=== PATIENT | male | born 1945 | race Caucasian/White ===

== ENCOUNTER 2016-11-07 14:27 | Emergency (ER) | payer OTHER ==
[2016-11-07 14:50] VITALS: TEMP 96
[2016-11-07 15:10] LABS: BASOPHILS % (AUTO) 1 % (0-3); EOSINOPHILS % (AUTO) 1 % (0-9); HEMATOCRIT 41 % (39-53); MEAN CORPUSCULAR HGB CONC 31.8 gm/dl (32.0-36.0); MEAN CORPUSCULAR VOLUME 91 fL (80-100); MONOCYTES % (AUTO) 6.8 % (0-12); NEUTROPHILS % (AUTO) 57.3 % (37-80)
[2016-11-07 15:27] LABS: ALBUMIN 3.6 gm/dl (3.4-5.0); ALT 12 IU/L (14-63); CALCIUM 8.7 mg/dl (8.5-10.1); GLOM FILT RATE 49 mL/min (>60); SODIUM 139 mMol/L (136-145)
[2016-11-07 15:31] LABS: POTASSIUM 4.4 mMol/L (3.5-5.1)
[2016-11-07 15:31] LABS: APPEARANCE,URINE Clear; BILIRUBIN,URINE NEGATIVE (NEGATIVE); COLOR,URINE Yellow; GLUCOSE, URINE (UA) NEGATIVE (NEGATIVE); KETONES,URINE TRACE (NEGATIVE); LEUKOCYTE ESTERASE ,URINE NEGATIVE (NEGATIVE); NITRATE,URINE NEGATIVE (NEGATIVE); OCCULT BLOOD,URINE 2+ (NEG-TRACE); PH,URINE 6.5
[2016-11-07 15:44] LABS: RBC,URINE 75-100 (0-3AV/HPF); WBC,URINE 0-2 (0-5AV/HPF)
[2016-11-07] MEDS ORDERED: SODIUM CHLORIDE 0.9% FLUSH 10 ML SOL IV PRN (16:36)
[2016-11-07] MEDS ORDERED: SODIUM CHLORIDE 0.9% 1000ML 1,000 ML IV ONE ×2 (16:36→16:38)
[2016-11-07 18:13] VITALS: BP 165/99; PULSE 67; RESP 19; O2SAT 97
== END 2016-11-07 19:05 | DRG 948 ==
LOC: ED 14:27
DX: R41.0 Disorientation, unspecified (principal); R31.29 Other microscopic hematuria; R32 Unspecified urinary incontinence
CPT/HCPCS: 36415; 80053; 81001; 84484; 85025; 93005; 96365; 99284; 99285

== ENCOUNTER 2016-11-09 17:23 | Emergency (ER) | payer OTHER ==
[2016-11-09 17:48] VITALS: TEMP 97.8
[2016-11-09 17:54] LABS: BASOPHILS % (AUTO) 0 % (0-3); EOSINOPHILS % (AUTO) 1 % (0-9); HEMATOCRIT 41 % (39-53); MEAN CORPUSCULAR HGB CONC 32.3 gm/dl (32.0-36.0); MEAN CORPUSCULAR VOLUME 89 fL (80-100); NEUTROPHILS % (AUTO) 71.3 % (37-80)
[2016-11-09 18:08] LABS: ALBUMIN 3.6 gm/dl (3.4-5.0); ALT 13 IU/L (14-63); GLOM FILT RATE 50 mL/min (>60); POTASSIUM 4.4 mMol/L (3.5-5.1); SODIUM 141 mMol/L (136-145)
[2016-11-09 18:33] LABS: APPEARANCE,URINE Clear; BILIRUBIN,URINE NEGATIVE (NEGATIVE); COLOR,URINE Yellow; GLUCOSE, URINE (UA) NEGATIVE (NEGATIVE); KETONES,URINE TRACE (NEGATIVE); LEUKOCYTE ESTERASE ,URINE NEGATIVE (NEGATIVE); NITRATE,URINE NEGATIVE (NEGATIVE); OCCULT BLOOD,URINE NEGATIVE (NEG-TRACE); UROBILINOGEN,URINE 0.2 (0.2-1.0 EU)
[2016-11-09 18:48] LABS: RBC,URINE 0-1 (0-3AV/HPF)
[2016-11-09 18:49] LABS: WBC,URINE 0-1 (0-5AV/HPF)
[2016-11-09 19:56] VITALS: BP 127/82; PULSE 79; RESP 12; O2SAT 91
== END 2016-11-09 20:04 | DRG 948 ==
LOC: ED 17:23
DX: R53.1 Weakness (principal); M79.604 Pain in right leg; R06.02 Shortness of breath; M79.605 Pain in left leg
CPT/HCPCS: 36415; 71010; 80053; 81001; 83880; 84484; 85025; 87804; 93005; 99283